=== PATIENT | male | born 1950 | race Caucasian/White ===

== ENCOUNTER 2024-10-06 08:00 | Day surgery (SDC) | payer OTHER ==
[2024-10-02 13:06] LABS: Absolute Eosinophils 0.1 K/uL (0-0.5); Absolute Lymphocytes (CBC) 2.5 K/uL (0.7-4.9); Absolute Monocytes 0.6 K/uL (0.1-1.3); Absolute Neutrophil 3.1 K/uL (1.8-8.0); Basophils % 0.5 % (0-1.3); Eosinophils % 1.7 % (0-4.4); Hematocrit 37.5 % (39.6-49.0); Hemoglobin 12.2 g/dL (13.6-17.9); Lymphocytes % 39.4 % (15.3-44.8); MCH 29.7 pg (27.0-35.0); MCHC 32.4 g/dL (32.0-36.0); MCV 91.6 fL (80-100); MPV 8.3 fL (7.6-11.3); Neutrophils % 49.4 % (41.7-73.7); Platelets 167 thou/uL (152-406); RBC Red Blood Cell Count 4.09 M/uL (4.33-5.43); Red Cell Distribution Width 14.5 % (12.1-15.2)
[2024-10-02 13:11] LABS: PT Prothrombin Time 16.5 SECONDS (9.4-12.5); PTT, Activated Partial Thromb 38.2 SECONDS (24.3-36.9); Protime INR 1.49
[2024-10-02 13:22] LABS: Anion Gap 6.7 mEq/L (5.0-15.0); Potassium 3.7 mEq/L (3.5-5.1)
--- NOTE | 2024-10-02 16:25 | RAD REPORT ---
EXAMINATION: TWO VIEW CHEST XR CLINICAL INDICATION: Male, 74 years old. 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 COMPARISON: 01/07/2010 FINDINGS: The lungs are well inflated and clear. No pneumothorax or sizable effusion. The heart is normal in si ze. Mediastinal contours are unremarkable. IMPRESSION: No acute or significant abnormalities.
--- NOTE | 2024-10-03 15:09 | EKG ---
Test Date: 2024-10-02 Test Time: 13:49:17 Jig Fitter: LISETTE MEASUREMENT RESULTS: Intervals: Rate: 64 UT: QRSD: 102 QT: 406 QTc: 418 [place]: P: UT: QRS: 2 T: 50 INTERPRETIVE STATEMENTS: Atrial fibrillation Abnormal ECG Compared to ECG 01/07/2010 08:52:04 Sinus bradycardia no longer present Electronically Signed On 10-03-24 15:07:17 RETAIL GENERAL MANAGER by Andrade Bermudez
[2024-10-06] MEDS ORDERED: NA CHLORIDE 0.9% 500 ML ONE (08:25)
[2024-10-06] MEDS ORDERED: HEPA 1000U/500MLS 2,000 UNIT/1,000 ML BAG IV ONE (09:06)
[2024-10-06] MEDS ORDERED: HEPARIN 10,000 UNIT/10 ML VIAL IV ONE (09:06)
[2024-10-06] MEDS ORDERED: MIDAZOLAM HCL 2 MG/2 ML INJ ONE (09:07)
[2024-10-06] MEDS ORDERED: ATROPINE SULF 1 MG/10 ML SYR IV ONE (09:07)
[2024-10-06] MEDS ORDERED: LIDOCAINE 1% 20 ML MDV ONE (09:07)
[2024-10-06] MEDS ORDERED: CLOPIDOGREL 75 MG TABLET ONE (09:07)
[2024-10-06] MEDS ORDERED: HEPARIN 5000 UNIT/ML 1 ML VIAL ONE (09:08)
[2024-10-06] MEDS ORDERED: TICAGRELOR 90 MG TABLET PO ONE (09:08)
[2024-10-06] MEDS ORDERED: ASPIRIN 325 MG TAB ONE (09:08)
[2024-10-06] MEDS ORDERED: FENTANYL CITR 100 MCG/2 ML ONE (09:09)
[2024-10-06 12:56] VITALS: BP 120/65; O2SAT 98
--- NOTE | 2024-10-06 23:08 | OP ---
Date of Procedure: 10/06/2024 Surgeon: Andrade Bermudez Procedures Performed: 1.Left heart catheterization. 2.Selective coronary angiogram. Indication For Procedure: Shortness of breath, atrial fibrillation, abnormal stress test. Complications: None. Estimated Blood Loss: Less than 50 cc. Access: Right radial, closed by TR band. Sedation Time: 20 minutes with 1 of Versed and 25 fentanyl. Description Of Procedure: After risks, benefits, and alternatives were explained to the patient, pat anna agreed to proceed with the procedure and signed informed consent. The patient was brought back to the laboratory animal facility supervisor, prepped and draped in sterile fashion. Time-out was performed. Sedation was admini stered. Next, the right radial access was obtained. [place] 4 catheter was advanced over the J-wire t o the LV cavity. LVEDP was obtained. Pullback did not show any gradient. Same catheter was used fo r selective angiogram of the left and right coronary systems. At the end of procedure, catheter was removed over a J-wire. Sheath was removed. TR band was applied. Hemostasis was achieved and dipti t was moved back to recovery in stable condition. Findings: 1.Left main: Normal. 2.LAD: Normal. 3.Left circ: Normal. 4.RCA: Normal. 5.LVEDP 9 mmHg. Assessment And Plan: 1.Normal coronaries. 2.Normal filling pressures. The plan will be to continue medical management for hypertension and diastolic dysfunction and also a peripheral for possible atrial fibrillation ablation. FLAVIO/MAYUR Voice ID: [id number] Report ID: [id number]
== END 2024-10-06 12:20 | disposition home or self-care (01) ==
LOC: CCL 08:00
PROVIDERS: ATTEND Internal Medicine Interventional Cardiology
DX: R94.39 Abnormal result of other cardiovascular function study (principal); R06.02 Shortness of breath; I48.11 Longstanding persistent atrial fibrillation; I34.0 Nonrheumatic mitral (valve) insufficiency; I11.0 Hypertensive heart disease with heart failure; I50.32 Chronic diastolic (congestive) heart failure; I77.819 Aortic ectasia, unspecified site; E78.2 Mixed hyperlipidemia; Z79.01 Long term (current) use of anticoagulants; Z79.899 Other long term (current) drug therapy
CPT/HCPCS: 93005; 85025; 80048; 36415; 85610; 85730; 71046; 93458; 76937; C1893; Q9966; J1644; J2003; J2250; J3010; J7040; 99152; 99153; J0461

== ENCOUNTER 2025-02-25 17:59 | Inpatient (IN) | payer OTHER ==
[2025-02-25 18:40] LABS: Absolute Eosinophils 0.1 K/uL (0-0.5); Absolute Lymphocytes (CBC) 1.9 K/uL (0.7-4.9); Absolute Monocytes 0.7 K/uL (0.1-1.3); Absolute Neutrophil 3.6 K/uL (1.8-8.0); Basophils % 0.6 % (0-1.3); Eosinophils % 1.4 % (0-4.4); Hematocrit 40.2 % (39.6-49.0); Hemoglobin 13.3 g/dL (13.6-17.9); Lymphocytes % 29.8 % (15.3-44.8); MCH 29.7 pg (27.0-35.0); MCHC 33.1 g/dL (32.0-36.0); MCV 89.9 fL (80-100); MPV 8.3 fL (7.6-11.3); Monocytes % 11.1 % (3.3-12.3); Neutrophils % 57.1 % (41.7-73.7); Nucleated Red Blood Cells % 0.1 % (0-0); Platelets 217 thou/uL (152-406); RBC Red Blood Cell Count 4.47 M/uL (4.33-5.43); Red Cell Distribution Width 15.3 % (12.1-15.2)
[2025-02-25 18:46] LABS: Anion Gap 6.9 mEq/L (5.0-15.0); Potassium 3.9 mEq/L (3.5-5.1); Troponin High Sensitivity 5.7 pg/mL (<58.9)
[2025-02-25] MEDS ORDERED: MAGNESIUM SULFATE 1 gm IVPB 1 GM/100 ML BAG IV ONE (18:50)
--- NOTE | 2025-02-25 19:11 | RAD REPORT ---
Procedure: Chest Single View HISTORY: Chest pain COMPARISON: 2023 FINDINGS: The lungs appear clear of acute infiltrate. No significant pleural effusion noted. The heart is mildly to moderately enlarged. . IMPRESSION: No acute abnormality is displayed.
--- NOTE | 2025-02-25 19:13 | RAD REPORT ---
EXAM: CT brain without contrast HISTORY: Headache COMPARISON: 2009 TECHNIQUE: Multiple contiguous axial images were obtained and a CT of the brain without contrast.. Sagittal and coronal reconstruction performed. Automated exposure control, adjustment of the mA and/or kV according to patient size, and/or iterative reconstruction. Unless otherwise specified, incidental f indings do not require dedicated imaging follow-up FINDINGS: An intracranial bleed is not seen Ventricles are normal caliber No extra-axial fluid collection noted 2 cm low-density area left occipital lobe has the appearance of an old infarction. No fluid within the visualized sinuses or mastoids noted. IMPRESSION: No acute intracranial abnormality noted. If the patient continues to have symptoms to suggest an acute intracranial abnormality then MRI of th e brain would be recommended.
[2025-02-25] MEDS ORDERED: NA CHLORIDE 0.9% 250 ML ONE (19:56)
--- NOTE | 2025-02-25 20:00 | EDPHYS ---
Physician Documentation [facility] Name: Rock Villafana Age: 75 yrs Sex: Male : 1950 Arrival Date: 02/25/2025 Time: 17:59 Bed 2 Private MD: ED Physician Shreyas Sharpe HPI: 02/25 19:42 This 75 yrs old Male presents to ER via Ambulatory with complaints of afib-sent by rn doctor. 19:42 The patient presents with a history of irregular heart beat. Onset: The rn symptoms/episode began/occurred 2 week(s) ago. Modifying factors: The symptoms are aggravated by sitting up, The symptoms are alleviated by lying down. Severity of symptoms: At their worst the symptoms were moderate in the emergency department the symptoms have improved. The patient has experienced similar episodes in the past. Patient reports atrial fibrillation acting up for the last 2 weeks. States constantly in A-fib but lately has been feeling dizzy and lightheaded. No syncope. Sent in by Dr. Bermudez for admission, initiation of sotalol and told he plans on cardioversion maybe Sunday. Patient denies any chest pain. Patient reports for the last week or 2 has been having vague changes in blood pressure with frequent drops in blood pressure leading to dizziness and lightheadedness. Denies blood in stool. No fever or chills. Does not feel sick.. Historical: - Allergies: 18:21 Demerol; iw - Home Meds: 18:21 Eliquis 5 mg oral tablet 2 times per day [Active]; furosemide 40 mg Oral tablet 2 times iw per day [Active]; Farxiga 10 mg oral tablet daily [Active]; carvedilol 6.25 mg oral tablet 2 times per day [Active]; pantoprazole 40 mg oral tablet, delayed release (enteric coated) daily [Active]; eplerenone 25 mg oral tablet daily [Active]; Entresto oral 2 times per day [Active]; - PMHx: 18:21 Atrial fibrillation; CVA; UT; iw - PSHx: 18:21 right shoulder; knee; foot; iw - Immunization history:: Adult Immunizations up to date. - Infectious Disease History:: Denies. - Family history:: not pertinent. - Social history:: Smoking status: Patient denies any tobacco usage or history of. - Hospitalizations: : No recent hospitalization is reported. ROS: 19:42 Constitutional: Negative for fever, chills, and weight loss, Cardiovascular: Positive rn for palpitations Respiratory: Negative for shortness of breath, cough, wheezing, and pleuritic chest pain, Abdomen/GI: Negative for abdominal pain, nausea, vomiting, diarrhea, and constipation, MS/Extremity: Negative for injury and deformity, Neuro: Positive for dizziness Exam: 19:42 ECG was reviewed by the Attending Physician. rn 19:42 Constitutional: This is a well developed, well nourished patient who is awake, alert, rn and in no acute distress. Patient making jokes ENT: Dry mucous membranes Cardiovascular: Regular rate, irregular rhythm Respiratory: Speaking full sentences, unlabored. No increased work of breathing, no retractions or nasal flaring. Abdomen/GI: Soft, non-tender Skin: No lesions MS/ Extremity: Pulses equal, no cyanosis. Neurovascular intact. Full, normal range of motion. Equal circumference. Neuro: Awake and alert, GCS 15, oriented to person, place, time, and situation. Cranial nerves II-XII grossly intact. Motor strength 5/5 in all extremities. Sensory grossly intact. Cerebellar exam normal. Vital Signs: 18:17 BP 80 / 65; Pulse 100; Resp 18; Pulse Ox 99% on R/A; ld1 18:23 BP 108 / 67; Pulse 94; Resp 16; Pulse Ox 100% on R/A; ld1 18:24 Weight 110.22 kg; Height 6 ft. 0 in. ; iw 20:04 BP 105 / 65; Pulse 77; Resp 16; Pulse Ox 99% ; kd3 21:15 BP 115 / 75; Pulse 78; Resp 14; Pulse Ox 100% on R/A; jb4 22:14 BP 114 / 73; Pulse 97; Resp 20; Pulse Ox 98% on R/A; jb4 18:24 Body Mass Index 32.96 (110.22 kg, 182.88 cm) iw MDM: 18:17 Medical Screening Exam initiated rn 19:56 ED course: Sotalol not started in emergency room due to multiple low blood pressures, rn blood pressure currently 100/60. Patient is in known atrial fibrillation chronically and heart rate controlled 70s to 90s. No reason to give sotalol emergently at this time and risk hypotension. Admitted to Dr. Guallpa and this was conveyed. Will allow him to consult cardiology and jointly decide when it is right to give antiarrhythmics.. 19:58 Differential diagnosis: arrythmia, dehydration, stress disorder. Data reviewed: vital rn signs, nurses notes, lab test result(s), EKG, radiologic studies, CT scan, plain films, and as a result, I will admit patient. Consideration of Admission/Observation Patient was admitted/placed on observation. Escalation of care including admission/observation considered. 19:59 Counseling: I had a detailed discussion with the patient and/or guardian regarding the rn historical points, exam findings, and any diagnostic results supporting the discharge/admit diagnosis, lab results, radiology results, the need for further work-up and treatment in the hospital. 02/25 18:17 Order name: Basic Metabolic Panel; Complete Time: 19:39 ld1 02/25 18:17 Order name: CBC with Diff; Complete Time: 19:39 ld1 02/25 18:17 Order name: Troponin HS; Complete Time: 19:39 ld1 02/25 18:18 Order name: Basic Metabolic Panel rn 02/25 18:18 Order name: CBC with Diff rn 02/25 18:18 Order name: Troponin HS rn 02/25 18:17 Order name: XRAY Chest (1 view); Complete Time: 19:39 ld1 02/25 18:28 Order name: CT Head Brain wo Cont; Complete Time: 19:39 rn 02/25 19:57 Order name: CONS Physician Consult EDMI 02/25 18:17 Order name: Cardiac monitoring; Complete Time: 18:17 ld1 02/25 18:17 Order name: EKG - Nurse/Tech; Complete Time: 18:17 ld1 02/25 18:17 Order name: IV Saline Lock; Complete Time: 18:17 ld1 02/25 18:17 Order name: Labs collected and sent; Complete Time: 18:17 ld1 02/25 18:17 Order name: O2 Per Protocol; Complete Time: 18:17 ld1 02/25 18:17 Order name: O2 Sat Monitoring; Complete Time: 18:17 ld1 EC:42 Rate is 92 beats/min. Rhythm is irregularly irregular. QRS [place] is Normal. QRS interval rn is normal. QT interval is normal. No Q waves. T waves are Normal. No ST changes noted. Clinical impression: Atrial Fibrillation. Interpreted by me. Reviewed by me. Administered Medications: 19:00 Drug: Magnesium Sulfate IVPB 1 grams IVPB once over 1 hrs Route: IVPB; Infused Over: 1 ld1 hrs; Site: right forearm; 20:00 Follow up: Response: No adverse reaction; IV Status: Completed infusion; IV Intake: jb4 100ml 19:59 Drug: NS 0.9% IV 250 ml IV at bolus once; to be given as a bolus over 30 minutes Route: jb4 IV; Rate: bolus; Site: right antecubital; 20:29 Follow up: Response: No adverse reaction; IV Status: Completed infusion; IV Intake: jb4 250ml Disposition Summary: 02/25/25 19:59 Hospitalization Ordered Notes: Hospitalization Status: Inpatient Admission rn Provider: Albert Guallpa rn Location: Telemetry/MedSurg (Inpatient) rn Condition: Stable rn Problem: chronic rn Symptoms: are unchanged rn Bed/Room Type: Standard rn Room Assignment: 220(02/25/25 22:12) rv1 Diagnosis - Persistent atrial fibrillation rn Forms: - Medication Reconciliation Form rn - SBAR form rn - Leadership Thank You Letter rn Signatures: Dispatcher [employer] EDMaricruz Chase RN RN Shreyas Driver MD MD rn Bryson, James, RN RN jb4 Shalom Townsend RN RN ll1 Rosa Ibarra RN RN ld1 Shoshana Souza rv1 Corrections: (The following items were deleted from the chart) 18:17 18:17 BASIC METABOLIC PANEL+C.LAB.BRZ ordered. EDMS EDMS 18:17 18:17 CBC+H.LAB.BRZ ordered. EDMS EDMS 18:17 18:17 Troponin High Sensitivity+C.LAB.BRZ ordered. EDMS EDMS 18:17 18:17 Chest Single View+RAD.RAD.BRZ ordered. EDMS EDMS 18:18 18:18 BASIC METABOLIC PANEL+C.LAB.BRZ ordered. EDMS EDMS 18:18 18:18 CBC+H.LAB.BRZ ordered. EDMS EDMS 18:18 18:18 Troponin High Sensitivity+C.LAB.BRZ ordered. EDMS EDMS 18:18 18:18 Chest Single View+RAD.RAD.BRZ ordered. EDMS EDMS 21:04 19:59 rn rv1 : 21:04 407 rv1 rv1 22:12 21:08 rv1 rv1
--- NOTE | 2025-02-25 20:00 | ER ---
Nurse's Notes [facility] Name: Rock Villafana Age: 75 yrs Sex: Male : 1950 Arrival Date: 02/25/2025 Time: 17:59 Bed 2 Private MD: Diagnosis: Persistent atrial fibrillation Presentation: 02/25 18:20 Chief complaint: Patient states: sent here by Dr. Bermudez to be put on sotalol for his iw Afib, he is supposed to to shock him on Sunday. Coronavirus screen: At this time, the client does not indicate any symptoms associated with coronavirus-19. Ebola Screen: No symptoms or risks identified at this time. Initial Sepsis Screen: Does the patient meet any 2 criteria? Does the patient have a suspected source of infection? No. Patient's initial sepsis screen is negative. Risk Assessment: Do you want to hurt yourself or someone else? Patient reports no desire to harm self or others. 18:20 Method Of Arrival: Ambulatory iw 18:20 Acuity: LAKIS[place] 2 iw Historical: - Allergies: 18:21 Demerol; iw - Home Meds: 18:21 Eliquis 5 mg oral tablet 2 times per day [Active]; furosemide 40 mg Oral tablet 2 times iw per day [Active]; Farxiga 10 mg oral tablet daily [Active]; carvedilol 6.25 mg oral tablet 2 times per day [Active]; pantoprazole 40 mg oral tablet, delayed release (enteric coated) daily [Active]; eplerenone 25 mg oral tablet daily [Active]; Entresto oral 2 times per day [Active]; - PMHx: 18:21 Atrial fibrillation; CVA; [place]; iw - PSHx: 18:21 right shoulder; knee; foot; iw - Immunization history:: Adult Immunizations up to date. - Infectious Disease History:: Denies. - Family history:: not pertinent. - Social history:: Smoking status: Patient denies any tobacco usage or history of. - Hospitalizations: : No recent hospitalization is reported. Screenin:[address] [facility] ED Fall Risk Assessment (Adult) History of falling in the last 3 months, ld1 including since admission No falls in past 3 months (0 pts) Confusion or Disorientation No (0 pts) Intoxicated or Sedated No (0 pts) Impaired Gait No (0 pts) Mobility Assist Device Used No (0 pt) Altered Elimination No (0 pt) Score/Fall Risk Level 0 - 2 = Low Risk Oriented to surroundings, Hourly rounding (assess needs \T\ fall precautionary measures) done. Abuse screen: Denies threats or abuse. Denies injuries from another. Nutritional screening: No deficits noted. Tuberculosis screening: No symptoms or risk factors identified. Assessment: 18:17 General: Appears in no apparent distress. comfortable, Behavior is calm, cooperative, ld1 appropriate for age. Pain: Denies pain. Neuro: Level of Consciousness is awake, alert, obeys commands, Oriented to person, place, time, situation. Cardiovascular: Capillary refill < 3 seconds Patient's skin is warm and dry. Rhythm is atrial fibrillation. Respiratory: Reports shortness of breath at rest on exertion Airway is patent Respiratory effort is even, unlabored. GI: Abdomen is round non-distended. : No signs and/or symptoms were reported regarding the genitourinary system. EENT: No signs and/or symptoms were reported regarding the EENT system. Derm: No signs and/or symptoms reported regarding the dermatologic system. Musculoskeletal: No signs and/or symptoms reported regarding the musculoskeletal system. 19:00 Reassessment: Patient appears in no apparent distress at this time. Patient and/or jb4 family updated on plan of care and expected duration. Pain level reassessed. Patient is alert, oriented x 3, equal unlabored respirations, skin warm/dry/pink. 20:00 Reassessment: Patient appears in no apparent distress at this time. Patient and/or jb4 family updated on plan of care and expected duration. Pain level reassessed. Patient is alert, oriented x 3, equal unlabored respirations, skin warm/dry/pink. 21:15 Reassessment: Patient appears in no apparent distress at this time. Patient and/or jb4 family updated on plan of care and expected duration. Pain level reassessed. Patient is alert, oriented x 3, equal unlabored respirations, skin warm/dry/pink. 22:14 Reassessment: Patient appears in no apparent distress at this time. Patient and/or jb4 family updated on plan of care and expected duration. Pain level reassessed. Patient is alert, oriented x 3, equal unlabored respirations, skin warm/dry/pink. Vital Signs: 18:17 BP 80 / 65; Pulse 100; Resp 18; Pulse Ox 99% on R/A; ld1 18:23 BP 108 / 67; Pulse 94; Resp 16; Pulse Ox 100% on R/A; ld1 18:24 Weight 110.22 kg; Height 6 ft. 0 in. ; iw 20:04 BP 105 / 65; Pulse 77; Resp 16; Pulse Ox 99% ; kd3 21:15 BP 115 / 75; Pulse 78; Resp 14; Pulse Ox 100% on R/A; jb4 22:14 BP 114 / 73; Pulse 97; Resp 20; Pulse Ox 98% on R/A; jb4 18:24 Body Mass Index 32.96 (110.22 kg, 182.88 cm) iw ED Course: 18:02 Patient arrived in ED. al6 18:09 Arm band placed on Patient placed in an exam room, on a stretcher. ll1 18:17 Shreyas Sharpe MD is Attending Physician. rn 18:17 Patient has correct armband on for positive identification. Placed in gown. Bed in low ld1 position. Call light in reach. Side rails up X2. monitor technician on. Pulse ox on. NIBP on. Door closed. Noise minimized. Warm blanket given. 18:17 Inserted saline lock: 20 gauge in right antecubital area, using aseptic technique. ld1 Blood collected. Flushed with 10 mL NS. 18:17 No provider procedures requiring assistance completed. ld1 18:18 Rosa Ibarra, MENDEZ is Primary Nurse. ld1 18:21 Triage completed. iw 18:38 XRAY Chest (1 view) In Process Unspecified. EDMS 18:57 CT Head Brain wo Cont In Process Unspecified. EDMS 19:59 Albert Guallpa MD is Hospitalizing Provider. rn 22:17 Patient admitted, IV remains in place. jb4 Administered Medications: 19:00 Drug: Magnesium Sulfate IVPB 1 grams IVPB once over 1 hrs Route: IVPB; Infused Over: 1 ld1 hrs; Site: right forearm; 20:00 Follow up: Response: No adverse reaction; IV Status: Completed infusion; IV Intake: jb4 100ml 19:59 Drug: NS 0.9% IV 250 ml IV at bolus once; to be given as a bolus over 30 minutes Route: jb4 IV; Rate: bolus; Site: right antecubital; 20:29 Follow up: Response: No adverse reaction; IV Status: Completed infusion; IV Intake: jb4 250ml Intake: 20:00 IV: 100ml; Total: 100ml. jb4 20:29 IV: 250ml; Total: 350ml. jb4 Outcome: 19:59 Decision to Hospitalize by Provider. rn 22:17 Admitted to Med/surg accompanied by nurse, via wheelchair, room 220, with chart, jb4 22:17 Condition: stable 22:17 Discharge instructions given to patient, Instructed on the need for admit, Demonstrated understanding of instructions, 23:21 Patient left the ED. jb4 Signatures: Dispatcher [employer] EDMaricruz Chase, RN Shreyas Chun MD MD rn Bryson, James, RN RN jb4 Shalom Townsend RN RN ll1 Rosa Ibarra RN RN ld1 Tina Moore RN RN kd3 Diana Cheung6
[2025-02-25] MEDS: APIXABAN 5 MG TABLET PO SCH (23:38)
[2025-02-25] MEDS ORDERED: ONDANSETRON 4 MG/2 ML VIAL IV PRN (23:38)
[2025-02-26 06:04] LABS: Absolute Basophils 0.1 K/uL (0-0.5); Absolute Eosinophils 0.1 K/uL (0-0.5); Absolute Lymphocytes (CBC) 1.9 K/uL (0.7-4.9); Absolute Monocytes 0.6 K/uL (0.1-1.3); Absolute Neutrophil 2.4 K/uL (1.8-8.0); Hematocrit 36.8 % (39.6-49.0); Hemoglobin 12.2 g/dL (13.6-17.9); Lymphocytes % 37.3 % (15.3-44.8); MCH 29.8 pg (27.0-35.0); MCHC 33.2 g/dL (32.0-36.0); MCV 89.7 fL (80-100); MPV 7.8 fL (7.6-11.3); Monocytes % 11.6 % (3.3-12.3); Neutrophils % 48.1 % (41.7-73.7); Nucleated Red Blood Cells % 0.1 % (0-0); Platelets 177 thou/uL (152-406)
[2025-02-26 06:13] LABS: Anion Gap 7.5 mEq/L (5.0-15.0); Potassium 3.5 mEq/L (3.5-5.1)
[2025-02-26] MEDS: APIXABAN 5 MG TABLET PO SCH (09:00)
--- NOTE | 2025-02-26 10:10 | P.CNS ---
Date of Consult: 02/26/25 Chief Complaint: atrial fibrillation History of Present Illness: Patient with PMH of atrial fibrillation, diastolic heart failure, presented with worsening palpitations, dizzy spells, hypotension, denies chest pain, no syncope, report chronic GAVIRIA. Allergies No Known Allergies Allergy (Verified 10/02/24 12:33) Home medications list reviewed: Yes Home Medications: Apixaban [Eliquis] 5 mg PO BID 02/25/25 Dapagliflozin Propanediol [Farxiga] 1 mg PO DAILY 02/25/25 Eplerenone 25 mg PO DAILY 02/25/25 Furosemide 40 mg PO BID 02/25/25 Pantoprazole [Protonix Tab] 40 mg PO DAILY 02/25/25 carvediloL [Carvedilol] 6.25 mg PO BID 02/25/25 - Past Medical/Surgical History Diabetic: No -: ablation september of 2024 - Social History Alcohol use: Yes CD- Drugs: No Caffeine use: Yes Place of Residence: Home Review of Systems 10-point ROS is otherwise unremarkable Physical Examination Temp Pulse Resp BP Pulse Ox 98.2 F 77 20 102/57 L 98 02/26/25 08:00 02/26/25 08:00 02/26/25 08:00 02/26/25 08:00 02/26/25 08:00 General: Alert, In no apparent distress HEENT: Atraumatic, PERRLA, Mucous membr. moist/pink, EOMI, Sclerae nonicteric Neck: Supple, 2+ carotid pulse no bruit, No LAD, Without JVD or thyroid abnormality Respiratory: Clear to auscultation bilaterally, Normal air movement Cardiovascular: Irregular heart rate/rhythm Gastrointestinal: Normal bowel sounds, No tenderness Musculoskeletal: No tenderness Integumentary: No rashes Neurological: Normal gait, Normal speech, Normal tone, Normal affect Lymphatics: No axilla or inguinal lymphadenopathy Laboratory Data (last 24 hrs) 02/25/25 02/25/25 02/25/25 18:20 18:20 18:18 WBC 6.30 Cancelled Hgb 13.3 L Cancelled Hct 40.2 Cancelled Plt Count 217 Cancelled Sodium 138 Potassium 3.9 BUN 22 H Creatinine 1.40 H Glucose 126 H 02/25/25 18:18 WBC Hgb Hct Plt Count Sodium Cancelled Potassium Cancelled BUN Cancelled Creatinine Cancelled Glucose Cancelled - Problems (1) Atrial fibrillation Current Visit: Yes Status: Acute Plan: start Sotalol 80 mg po BID Continue Eliquis 5 mg po BID NPO after midnight for MATTY DCCV. continue to monitor on tele (2) Chronic diastolic heart failure Current Visit: Yes Status: Acute Plan: Patient looks euvolemic on exam, his BP is soft and dropping, will hold on coreg, aldactone and lasix until his BP is more stable.
[2025-02-26] MEDS: SOTALOL HCL 80 MG TAB PO SCH (10:41)
[2025-02-27] MEDS ORDERED: NA CHLORIDE 0.9% 500 ML ONE (07:20)
[2025-02-27] MEDS ORDERED: propofoL 200 MG/20 ML VIAL IV ONE (07:45)
[2025-02-27] MEDS ORDERED: LIDOCAINE 1% MPF 5 ML VIAL ONE (07:45)
[2025-02-27 08:51] VITALS: O2SAT 100
--- NOTE | 2025-02-27 08:54 | P.PN ---
Subjective Date of Service: 02/27/25 Chief Complaint: atrial fibrillation Subjective: No new changes, No C/O voiced, Tolerating diet, Ambulating, Improving Review of Systems 10-point ROS is otherwise unremarkable Physical Examination - Vital Signs Temperature: 97.8 F Blood Pressure: 102/60 Pulse: 56 Respirations: 18 Pulse Ox (%): 99 - Physical Exam General: Alert, In no apparent distress HEENT: Atraumatic, PERRLA, EOMI Neck: Supple, JVD not distended Respiratory: Clear to auscultation bilaterally, Normal air movement Cardiovascular: Regular rate/rhythm, Normal S1 S2 Gastrointestinal: Normal bowel sounds, No tenderness Musculoskeletal: No tenderness Integumentary: No rashes Neurological: Normal speech, Normal tone, Normal affect Lymphatics: No axilla or inguinal lymphadenopathy - Studies Medications List Reviewed: Yes Assessment And Plan - Current Problems (Diagnosis) (1) Atrial fibrillation Current Visit: Yes Status: Acute Plan: Patient is s/p MATTY DCCV, QTc is WNL Continue Sotalol 80 mg po BID Continue Eliquis 5 mg po BID continue to monitor on tele (2) Chronic diastolic heart failure Current Visit: Yes Status: Acute Plan: Patient looks euvolemic on exam, his BP is soft and dropping, will hold on coreg, aldactone and lasix until his BP is more stable.
--- NOTE | 2025-02-27 09:52 | P.SSS ---
Patient History Date of Service: 02/26/25 Reason for admission: atrial fibrillation History of Present Illness: MR. CONWAY IS A PATIENT WHO HAS HAD ORTHOSTATIC HYPOTENSION LATELY. HE HAS HAD CONGESTIVE CARDIOMYOPATHY. HE HAS BEEN GIVEN ENTRESTO AND JARDIANCE LATELY. HE DROPS BP AND IS NOT ABLE TO TAKE IT. DR. AMOR WILL GIVE SOTALOL AND TRY TO CONVERT A FIB TO SINUS. Allergies No Known Allergies Allergy (Verified 10/02/24 12:33) Home medications list reviewed: Yes Home Medications: Apixaban [Eliquis] 5 mg PO BID 02/25/25 Dapagliflozin Propanediol [Farxiga] 1 mg PO DAILY 02/25/25 Eplerenone 25 mg PO DAILY 02/25/25 Furosemide 40 mg PO BID 02/25/25 Pantoprazole [Protonix Tab] 40 mg PO DAILY 02/25/25 carvediloL [Carvedilol] 6.25 mg PO BID 02/25/25 - Past Medical/Surgical History Has patient received pneumonia vaccine in the past: Yes Diabetic: No -: ablation september of 2024 - Social History Smoking Status: Never smoker Alcohol use: Yes CD- Drugs: No Caffeine use: Yes Place of Residence: Home Review of Systems 10-point ROS is otherwise unremarkable Physical Examination - Vital Signs Temperature: 97.8 F Blood Pressure: 100/55 Pulse: 52 Respirations: 16 Pulse Ox (%): 99 - Physical Exam General: Oriented x3, Mild distress HEENT: Atraumatic, PERRLA, Mucous membr. moist/pink, EOMI, Sclerae nonicteric Neck: Supple, 2+ carotid pulse no bruit, No LAD, Without JVD or thyroid abnormality Respiratory: Clear to auscultation bilaterally, Normal air movement Cardiovascular: Regular rate/rhythm, Normal S1 S2 Gastrointestinal: Normal bowel sounds, No tenderness Musculoskeletal: No tenderness Integumentary: No rashes Neurological: Normal gait, Normal speech, Normal strength at 5/5 x4 extr, Normal tone, Normal affect Lymphatics: No axilla or inguinal lymphadenopathy - Diagnosis (Problem(s)) (1) Atrial fibrillation Current Visit: Yes Status: Chronic Plan: CONT MEDS. STOP FARXIGA AND ENTRESTO RESUME SOTALOL. LASIX TOLERATED. (2) Chronic diastolic heart failure Current Visit: Yes Status: Chronic (3) Orthostatic hypotension Current Visit: Yes Status: Chronic Plan: HIS LEGS SWELL HEAVY WITHOUT LASIX I WILL RESUME LASIX BESIDES SOTALOL HE MAY NOT TOLERATE OTHER MEDS. - Disposition Disposition: ROUTINE DISCHARGE
--- NOTE | 2025-02-27 13:18 | EKG ---
Test Date: 2025-02-27 Test Time: 08:31:11 Carpenter Mold: LEE MEASUREMENT RESULTS: Intervals: Rate: 54 OK: 172 QRSD: 98 QT: 458 QTc: 434 [place]: P: 60 OK: 172 QRS: 49 T: 52 INTERPRETIVE STATEMENTS: Sinus bradycardia Otherwise normal ECG Compared to ECG 02/25/2025 18:19:40 Atrial fibrillation no longer present Myocardial infarct finding no longer present Electronically Signed On 02-27-25 13:17:11 CDT by Andrade Bermudez
--- NOTE | 2025-02-27 13:20 | TEE ---
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 NORMAL LEFT ATRIAL APPENDAGE, NO THROMBUS TECHNOLOGIST: AUREA BUNCH
--- NOTE | 2025-02-27 13:31 | EKG ---
Test Date: 2025-02-25 Test Time: 18:19:40 Tank Storage Supervisor: AM MEASUREMENT RESULTS: Intervals: Rate: 92 ND: QRSD: 88 QT: 348 QTc: 430 [place]: P: ND: QRS: 11 T: 64 INTERPRETIVE STATEMENTS: Atrial fibrillation Possible Anterior infarct, age undetermined Abnormal ECG Compared to ECG 10/02/2024 13:49:17 Myocardial infarct finding now present Electronically Signed On 02-27-25 13:20:03 CDT by Andrade Bermudez
[2025-02-27] MEDS: SOTALOL HCL 80 MG TAB PO SCH (14:22)
--- NOTE | 2025-02-27 15:05 | OP ---
Date of Procedure: 02/27/2025 Surgeon: Andrade Bermudez Procedure Performed: Synchronized MATTY cardioversion. Indication For Procedure: Atrial fibrillation. Complications: None. Estimated Blood Loss: None. Sedation: Done by Anesthesia team. Description Of Procedure: After risks, benefits, and alternatives were explained to the patient, the patient agreed to proceed with procedure and signed informed consent. The patient was brought back to the OR. Time-out was performed. Sedation was administered by Anesthesia Team. Next, MATTY probe i nserted. Images were obtained and then MATTY probe out. After that synchronized cardioversion was don e with 200 joules. Patient converted back into sinus rhythm. The patient was moved to recovery room in stable condition. Assessment And Plan: 1. Atrial fibrillation, status post successful synchronized MATTY cardioversion. 2. The plan is continue sotalol 80 mg p.o. b.i.d. 3. Continue Eliquis 5 mg p.o. b.i.d. FLAVIO/MAYUR Voice ID: [id number] Report ID: [id number]
--- NOTE | 2025-02-27 17:22 | P.PN ---
Subjective Date of Service: 02/27/25 Chief Complaint: atrial fibrillation Subjective: Improving BRITT HAS HAD CONGESTIVE HEART FAILURE WITH EDEMA FOR A LONG DURATION. HE HAS NOT TOLERATED ENTRESTO AND JARADIANCE. HE HAS SYNCOPE LATELY BP STAYS LOW. DR. AMOR PERFORMED CARDIOVERSION ON SOTALOL. HE WILL BE HERE UNTIL TOMORROW FOR SOTALOL. I WILL SEND HIM HOME ON SOTALOL AND ELIQUIS AND BP PERMITS HE WILL TAKE FUROSEMIDE. Review of Systems 10-point ROS is otherwise unremarkable General: Weakness, As per HPI Respiratory: As per HPI Physical Examination - Vital Signs Temperature: 97.6 F Blood Pressure: 115/53 Pulse: 64 Respirations: 16 Pulse Ox (%): 99 - Physical Exam General: Alert, Oriented x3, Mild distress HEENT: Atraumatic, PERRLA, EOMI Neck: Supple, JVD not distended Respiratory: Clear to auscultation bilaterally, Normal air movement Cardiovascular: Regular rate/rhythm, Normal S1 S2, Edema Gastrointestinal: Normal bowel sounds, No tenderness Musculoskeletal: No tenderness Integumentary: No rashes Neurological: Normal speech, Normal tone, Normal affect Lymphatics: No axilla or inguinal lymphadenopathy - Studies Medications List Reviewed: Yes Assessment And Plan - Current Problems (Diagnosis) (1) Atrial fibrillation Current Visit: Yes Status: Chronic Plan: CONT MEDS. STOP FARXIGA AND ENTRESTO RESUME SOTALOL. LASIX TOLERATED. STABLE WILL SEE HIM IN AM. (2) Chronic diastolic heart failure Current Visit: Yes Status: Chronic (3) Orthostatic hypotension Current Visit: Yes Status: Chronic Plan: HIS LEGS SWELL HEAVY WITHOUT LASIX I WILL RESUME LASIX BESIDES SOTALOL HE MAY NOT TOLERATE OTHER MEDS.
[2025-02-28 03:53] VITALS: BMI 4647.6
[2025-02-28 08:23] VITALS: BP 112/54; TEMP 97.8
--- NOTE | 2025-02-28 13:58 | P.DS ---
Admission Date: 02/25/25 Discharge Date: 02/28/25 Disposition: ROUTINE DISCHARGE Discharge Condition: FAIR Reason for Admission: atrial fibrillation - Problems (1) Atrial fibrillation Status: Chronic (2) Chronic diastolic heart failure Status: Chronic (3) Orthostatic hypotension Status: Chronic Brief History of Present Illness: MR. CONWAY IS A PATIENT WHO HAS HAD ORTHOSTATIC HYPOTENSION LATELY. HE HAS HAD CONGESTIVE CARDIOMYOPATHY. HE HAS BEEN GIVEN ENTRESTO AND JARDIANCE LATELY. HE DROPS BP AND IS NOT ABLE TO TAKE IT. DR. AMOR WILL GIVE SOTALOL AND TRY TO CONVERT A FIB TO SINUS. Hospital Course: BRITT HAS BEEN IN WITH ORTHOSTATIC HYPOTENSION RELAED TO MEDS. WE STOPPED MOST MEDS. HE IS DOING WELL ON SMALL DOSE OF SOTALOL BID FOR A FIB AND ELIQUIS. HE WILL TAKE ONE LASIX 40 MG IF BP IS HIGHER THAN 110 ON STANDING. HE WILL COME TO OFFICE IN ONE WEEK. Vital Signs/Physical Exam: Temp Pulse Resp BP Pulse Ox 97.8 F 57 16 112/54 L 100 02/28/25 08:00 02/28/25 08:00 02/28/25 08:00 02/28/25 08:00 02/28/25 08:00 Laboratory Data at Discharge: WBC 5.00 thou/uL (4.3-10.9) 02/26/25 05:41 Hgb 12.2 g/dL (13.6-17.9) L D 02/26/25 05:41 Hct 36.8 % (39.6-49.0) L 02/26/25 05:41 Plt Count 177 thou/uL (152-406) 02/26/25 05:41 Sodium 141 mEq/L (136-145) 02/26/25 05:41 Potassium 3.5 mEq/L (3.5-5.1) 02/26/25 05:41 BUN 17 mg/dL (7-18) 02/26/25 05:41 Creatinine 0.95 mg/dL (0.70-1.30) 02/26/25 05:41 Glucose 107 mg/dL (74-106) H 02/26/25 05:41 Home Medications: Apixaban [Eliquis] 5 mg PO BID 02/25/25 Pantoprazole [Protonix Tab*] 40 mg PO DAILY 02/25/25 Furosemide 40 mg PO DAILY #90 02/28/25 Sotalol HCl [Betapace AF] 40 mg PO BID #30 02/28/25 New Medications: Sotalol HCl [Betapace AF] 40 mg PO BID #30 Furosemide 40 mg PO DAILY #90 Followup: Albert Guallpa MD [Primary Care Provider] -
== END 2025-02-28 11:00 | disposition home or self-care (01) | DRG 309 ==
LOC: ER 17:59 → ERHOLD 19:54 → 2ND 22:52
PROVIDERS: ADMIT Internal Medicine; ATTEND Internal Medicine
PROC: B24BZZ4 Ultrasonography of Heart with Aorta, Transesophageal (ICD-10-PCS; principal; 2025-02-27)
PROC: B24BZZ4 Ultrasonography of Heart with Aorta, Transesophageal (ICD-10-PCS; 2025-02-27)
DX: I48.20 Chronic atrial fibrillation, unspecified (principal); I50.32 Chronic diastolic (congestive) heart failure; I95.1 Orthostatic hypotension; Z79.01 Long term (current) use of anticoagulants; Z79.02 Long term (current) use of antithrombotics/antiplatelets; Z79.899 Other long term (current) drug therapy
CPT/HCPCS: 01922; 36415; 70450; 71045; 80048; 84484; 85025; 92960; 93005; 93312; 96365; 97112; 97116; 97161; 99285; J2003; J2704; J3475; J7040; J7050